=== PATIENT | male | born 1965 | race Caucasian/White ===

== ENCOUNTER 2016-10-12 08:40 | Inpatient (IN) | payer BC ==
[~2016-10-12] VITALS: Ht 190.5 cm; Wt 108.6 kg
[2016-10-12] MEDS ORDERED: SODIUM CHLORIDE 0.9% 1,000 ML IV ONE ×2 (10:14→12:01)
[2016-10-12] MEDS ORDERED: METOCLOPRAMIDE HCL 5MG/ml INJ 2ml VIAL IV ONE (10:15)
[2016-10-12] MEDS ORDERED: KETOROLAC TROMETH 30 MG/ML 1ML VIAL IV ONE (10:15)
[2016-10-12] MEDS ORDERED: cefTRIAXone 1GM/50ML D5W 50 ML IV ONE (12:15)
[2016-10-12 12:27] LABS: CONDITION Y; DEFINITIVE SEE PRINTOUT; Hemoglobin 15.8 g/dL (13.5-17.5); Mean Corpuscular Hemoglobin 40.3 pg (28.0-32.0); Mean Corpuscular Hgb Conc. 35.8 g/dL (32.0-36.0); Mean Corpuscular Volume 112.6 fL (80.0-100.0); Platelet Count (auto) 447 10^3/uL (140-450); Red Cell Distribution Width 14.4 % (11.6-16.0); SUSPECT SEE PRINTOUT; White Blood Cell 20.5 10^3/uL (4.4-10.8)
[2016-10-12 12:46] LABS: BUN/Creatinine Ratio 13.5; Calcium 9.2 mg/dL (8.5-10.1); Magnesium 1.5 mg/dL (1.6-2.6)
[2016-10-12 13:01] LABS: Metamyelocytes % 0; Myelocytes % 0; Promyelocytes % 0; Reactive Lymphocytes 0
[2016-10-12 13:22] LABS: Giant Platelets Few; Platelet Estimate Adequate
[2016-10-12 13:23] LABS: Large Platelets FEW
[2016-10-12] MEDS: MAGNESIUM SULFATE 1GM/100ML 100 ML IV SCH ×2 (14:00→15:14)
[2016-10-12 14:27] LABS: Urine Blood TRACE /uL (Negative); Urine Color Brown (Yellow); Urine Glucose Normal (Normal); Urine Hyaline Cast FEW /lpf (0 - 2); Urine Ketone Negative (Negative); Urine Mucus FEW (None Seen); Urine Nitrite Negative (Negative); Urine RBC 6 /hpf (0 - 3); Urine Squamous Epithelial Cell FEW /hpf (<5)
[2016-10-12 14:35] LABS: Urine Bilirubin POSITIVE (Negative)
[2016-10-12] MEDS ORDERED: NICOTINE 14 MG/24HR TOPICAL PATCH TD ONE (15:15)
[2016-10-12] MEDS ORDERED: IBUPROFEN 800 MG TAB PO PRN (15:15)
[2016-10-12] MEDS ORDERED: AZITHROMYCIN 500MG/D5W 250ML 250 ML IV ONE (15:15)
[2016-10-12] MEDS ORDERED: MORPHINE SULF INJ 2 MG/ML SYRINGE 1ML IV PRN (15:15)
[2016-10-12] MEDS ORDERED: ACETAMINOPHEN 325 MG TAB PO PRN (15:15)
[2016-10-12] MEDS ORDERED: DOCUSATE SOD 100 MG CAP PO PRN (15:15)
[2016-10-12] MEDS ORDERED: ONDANSETRON HCL 4 MG/2 ML VIAL IV PRN (15:15)
[2016-10-12] MEDS: MULTIPLE VITAMIN TAB PO SCH (15:35)
[2016-10-12] MEDS ORDERED: cloNIDine HCL 0.1 MG TAB PO PRN (16:30)
[2016-10-12 16:47] VITALS: BP 142/93
[2016-10-12] MEDS ORDERED: SIMV10TA84 (17:25)
[2016-10-12] MEDS: IPRATROPIUM BROM 0.5 MG/2.5ML INH SOL NEB SCH (18:12)
[2016-10-12] MEDS: ALBUTEROL SULF 2.5 MG/0.5ML(0.5%) NEB SOLN NEB SCH (18:13)
[2016-10-12 22:28] VITALS: BP 146/96
[2016-10-12] MEDS: SODIUM CHLOR 0.9% PF (SALINE LOCK) 10ML VIAL IV SCH (22:46)
[2016-10-12] MEDS: HYDROcodone-ACET 5/325MG TAB PO PRN (22:46)
[2016-10-13] MEDS: ALBUTEROL SULF 2.5 MG/0.5ML(0.5%) NEB SOLN NEB SCH ×4 (02:21→19:34)
[2016-10-13] MEDS: IPRATROPIUM BROM 0.5 MG/2.5ML INH SOL NEB SCH ×4 (02:21→19:34)
[2016-10-13 04:14] VITALS: BP 146/96
[2016-10-13 04:55] VITALS: BP 145/94
[2016-10-13 05:54] LABS: Basophils # (auto) 0 uL; Basophils % (auto) 0.2 % (0.0-2.0); CONDITION Y; DEFINITIVE SEE PRINTOUT; Eosinophils # (auto) 0.2 uL; Hematocrit 40.2 % (41.0-53.0); Hemoglobin 14.2 g/dL (13.5-17.5); Lymphocytes # (auto) 3.5 uL; Lymphocytes % (auto) 21.4 % (10.0-50.0); Mean Corpuscular Hemoglobin 39.8 pg (28.0-32.0); Mean Corpuscular Hgb Conc. 35.3 g/dL (32.0-36.0); Mean Platelet Volume 7.5 fL (7.4-10.4); Monocytes # (auto) 1.1 uL; Monocytes % (auto) 6.7 % (0.0-12.0); Neutrophils # (auto) 11.6 uL; Neutrophils % (auto) 70.7 % (37.0-80.0); Platelet Count (auto) 413 10^3/uL (140-450); Red Cell Distribution Width 14.1 % (11.6-16.0); White Blood Cell 16.4 10^3/uL (4.4-10.8)
[2016-10-13 05:59] LABS: Albumin 2.9 g/dL (3.4-5.0); BUN/Creatinine Ratio 15.7; Calcium 8.9 mg/dL (8.5-10.1); Potassium 4.1 mmol/L (3.5-5.1)
[2016-10-13 06:02] LABS: Bilirubin, Total 2.2 mg/dL (0.2-1.0)
[2016-10-13] MEDS: SODIUM CHLOR 0.9% PF (SALINE LOCK) 10ML VIAL IV SCH ×3 (06:07→22:39)
[2016-10-13 09:00] VITALS: BP 142/96
[2016-10-13] MEDS: AZITHROMYCIN 500MG/D5W 250ML 250 ML IV SCH (10:16)
[2016-10-13] MEDS: NICOTINE 14 MG/24HR TOPICAL PATCH TD SCH (10:16)
[2016-10-13] MEDS: cefTRIAXone 1GM/50ML D5W 50 ML IV SCH (10:16)
[2016-10-13] MEDS: MULTIPLE VITAMIN TAB PO SCH (10:16)
[2016-10-13] MEDS: HYDROcodone-ACET 5/325MG TAB PO PRN ×3 (11:49→22:40)
[2016-10-13] MEDS ORDERED: LISINOPRIL 10 MG TAB PO ONE (12:15)
[2016-10-13] MEDS ORDERED: THIAMINE HCL 100 MG/ML 2ML VIAL IV ONE (12:15)
[2016-10-13] MEDS: SODIUM CHLORIDE 0.9% 1,000 ML IV SCH (12:39)
[2016-10-13 13:00] VITALS: BP 157/91
[2016-10-13 17:23] VITALS: BP 146/95
[2016-10-13 22:00] VITALS: BP 148/92
[2016-10-13] MEDS: TEMAZEPAM 15 MG CAP PO PRN (22:40)
[2016-10-14] MEDS: IPRATROPIUM BROM 0.5 MG/2.5ML INH SOL NEB SCH ×5 (01:44→23:55)
[2016-10-14] MEDS: ALBUTEROL SULF 2.5 MG/0.5ML(0.5%) NEB SOLN NEB SCH ×5 (01:44→23:55)
[2016-10-14] MEDS: SODIUM CHLORIDE 0.9% 1,000 ML IV SCH ×2 (02:29→14:55)
[2016-10-14] MEDS: HYDROcodone-ACET 5/325MG TAB PO PRN ×2 (02:35→22:08)
[2016-10-14 05:00] VITALS: BP 137/92
[2016-10-14] MEDS: SODIUM CHLOR 0.9% PF (SALINE LOCK) 10ML VIAL IV SCH ×3 (05:53→22:04)
[2016-10-14 06:11] LABS: Basophils # (auto) 0.1 uL; Basophils % (auto) 0.3 % (0.0-2.0); CONDITION Y; DEFINITIVE SEE PRINTOUT; Eosinophils # (auto) 0.1 uL; Eosinophils % (auto) 0.7 % (0.0-7.0); Hematocrit 39.5 % (41.0-53.0); Hemoglobin 13.9 g/dL (13.5-17.5); Lymphocytes # (auto) 2.9 uL; Lymphocytes % (auto) 16.4 % (10.0-50.0); Mean Corpuscular Hgb Conc. 35.2 g/dL (32.0-36.0); Mean Corpuscular Volume 113.6 fL (80.0-100.0); Mean Platelet Volume 7.5 fL (7.4-10.4); Monocytes # (auto) 1.6 uL; Monocytes % (auto) 9.2 % (0.0-12.0); Neutrophils # (auto) 13.1 uL; Neutrophils % (auto) 73.4 % (37.0-80.0); Platelet Count (auto) 417 10^3/uL (140-450); Red Cell Distribution Width 14.5 % (11.6-16.0); White Blood Cell 17.8 10^3/uL (4.4-10.8)
[2016-10-14 06:36] LABS: Potassium 3.8 mmol/L (3.5-5.1)
[2016-10-14 06:42] LABS: BUN/Creatinine Ratio 12.1; Calcium 9.2 mg/dL (8.5-10.1); Magnesium 1.5 mg/dL (1.6-2.6)
[2016-10-14 09:00] VITALS: BP 142/85
[2016-10-14] MEDS: cefTRIAXone 1GM/50ML D5W 50 ML IV SCH (10:21)
[2016-10-14] MEDS: AZITHROMYCIN 500MG/D5W 250ML 250 ML IV SCH (10:22)
[2016-10-14] MEDS: MULTIPLE VITAMIN TAB PO SCH (10:23)
[2016-10-14] MEDS: LISINOPRIL 10 MG TAB PO SCH (10:23)
[2016-10-14] MEDS: NICOTINE 14 MG/24HR TOPICAL PATCH TD SCH (10:24)
[2016-10-14] MEDS ORDERED: cloNIDine HCL 0.1 MG TAB PO PRN (11:45)
[2016-10-14] MEDS ORDERED: PANTOPRAZOLE 40 MG TAB PO ONE (11:45)
[2016-10-14] MEDS ORDERED: SERTRALINE HCL 50 MG TAB PO ONE (11:45)
[2016-10-14] MEDS ORDERED: INDOMETHACIN 25 MG CAP PO ONE (11:45)
[2016-10-14] MEDS: THIAMINE HCL 100 MG/ML 2ML VIAL IV SCH (11:47)
[2016-10-14 13:00] VITALS: BP 146/83
[2016-10-14] MEDS: MAGNESIUM SULFATE 1GM/100ML 100 ML IV SCH ×2 (14:34→15:32)
[2016-10-14] MEDS: INDOMETHACIN 25 MG CAP PO SCH ×2 (14:40→22:00)
[2016-10-14 17:00] VITALS: BP 149/90
[2016-10-14 22:00] VITALS: BP 142/91
[2016-10-14] MEDS: TEMAZEPAM 15 MG CAP PO PRN (22:00)
[2016-10-14] MEDS ORDERED: TEMAZEPAM 15 MG CAP PO ONE (22:30)
[2016-10-15 05:00] VITALS: BP 136/88
[2016-10-15] MEDS: ALBUTEROL SULF 2.5 MG/0.5ML(0.5%) NEB SOLN NEB SCH ×3 (06:21→18:52)
[2016-10-15] MEDS: IPRATROPIUM BROM 0.5 MG/2.5ML INH SOL NEB SCH ×3 (06:21→18:52)
[2016-10-15 06:36] LABS: Basophils # (auto) 0 uL; Basophils % (auto) 0.1 % (0.0-2.0); CONDITION Y; DEFINITIVE SEE PRINTOUT; Eosinophils # (auto) 0.2 uL; Eosinophils % (auto) 1.5 % (0.0-7.0); Hematocrit 38.1 % (41.0-53.0); Hemoglobin 13.5 g/dL (13.5-17.5); Lymphocytes # (auto) 2.3 uL; Lymphocytes % (auto) 15.4 % (10.0-50.0); Mean Corpuscular Hgb Conc. 35.4 g/dL (32.0-36.0); Mean Corpuscular Volume 113.2 fL (80.0-100.0); Mean Platelet Volume 7.8 fL (7.4-10.4); Monocytes # (auto) 1.4 uL; Monocytes % (auto) 9.8 % (0.0-12.0); Neutrophils # (auto) 10.8 uL; Neutrophils % (auto) 73.2 % (37.0-80.0); Platelet Count (auto) 447 10^3/uL (140-450); Red Cell Distribution Width 13.9 % (11.6-16.0); White Blood Cell 14.7 10^3/uL (4.4-10.8)
[2016-10-15] MEDS: INDOMETHACIN 25 MG CAP PO SCH ×3 (06:43→22:13)
[2016-10-15] MEDS: SODIUM CHLOR 0.9% PF (SALINE LOCK) 10ML VIAL IV SCH ×3 (06:43→22:13)
[2016-10-15] MEDS: SODIUM CHLORIDE 0.9% 1,000 ML IV SCH ×2 (06:43→17:35)
[2016-10-15 09:00] VITALS: BP 146/98
[2016-10-15] MEDS: cefTRIAXone 1GM/50ML D5W 50 ML IV SCH (09:45)
[2016-10-15] MEDS: SERTRALINE HCL 50 MG TAB PO SCH (09:46)
[2016-10-15] MEDS: AZITHROMYCIN 250 MG TAB PO SCH (09:46)
[2016-10-15] MEDS: PANTOPRAZOLE 40 MG TAB PO SCH (09:46)
[2016-10-15] MEDS: MULTIPLE VITAMIN TAB PO SCH (09:47)
[2016-10-15] MEDS: THIAMINE HCL 100 MG/ML 2ML VIAL IV SCH (09:48)
[2016-10-15] MEDS: LISINOPRIL 10 MG TAB PO SCH (09:48)
[2016-10-15] MEDS: NICOTINE 14 MG/24HR TOPICAL PATCH TD SCH (09:49)
[2016-10-15] MEDS ORDERED: methylPREDNISolone SOD SUCC 40 MG/ML VL IV ONE (11:15)
[2016-10-15 12:44] VITALS: BP 131/79
[2016-10-15 17:00] VITALS: BP 148/96
[2016-10-15 22:00] VITALS: BP 147/102
[2016-10-15] MEDS: methylPREDNISolone SOD SUCC 40 MG/ML VL IV SCH (22:13)
[2016-10-15] MEDS: TEMAZEPAM 15 MG CAP PO PRN (23:24)
[2016-10-15] MEDS: HYDROcodone-ACET 5/325MG TAB PO PRN (23:24)
[2016-10-16 05:00] VITALS: BP 150/87
[2016-10-16] MEDS: SODIUM CHLOR 0.9% PF (SALINE LOCK) 10ML VIAL IV SCH ×2 (06:13→14:00)
[2016-10-16] MEDS: INDOMETHACIN 25 MG CAP PO SCH ×2 (06:13→14:00)
[2016-10-16] MEDS: IPRATROPIUM BROM 0.5 MG/2.5ML INH SOL NEB SCH ×3 (06:30→12:49)
[2016-10-16] MEDS: ALBUTEROL SULF 2.5 MG/0.5ML(0.5%) NEB SOLN NEB SCH ×3 (06:30→12:49)
[2016-10-16] MEDS: SODIUM CHLORIDE 0.9% 1,000 ML IV SCH (06:40)
[2016-10-16 08:00] VITALS: BP 151/97
[2016-10-16 08:29] VITALS: BP 151/97
[2016-10-16] MEDS: THIAMINE HCL 100 MG/ML 2ML VIAL IV SCH (09:50)
[2016-10-16] MEDS: NICOTINE 14 MG/24HR TOPICAL PATCH TD SCH (09:51)
[2016-10-16] MEDS: methylPREDNISolone SOD SUCC 40 MG/ML VL IV SCH (09:51)
[2016-10-16] MEDS: AZITHROMYCIN 250 MG TAB PO SCH (09:53)
[2016-10-16] MEDS: MULTIPLE VITAMIN TAB PO SCH (09:53)
[2016-10-16] MEDS: SERTRALINE HCL 50 MG TAB PO SCH (09:53)
[2016-10-16] MEDS: LISINOPRIL 10 MG TAB PO SCH (09:54)
[2016-10-16] MEDS: PANTOPRAZOLE 40 MG TAB PO SCH (09:55)
[2016-10-16] MEDS: cefTRIAXone 1GM/50ML D5W 50 ML IV SCH (09:56)
[2016-10-16 12:07] VITALS: BP 151/97
[2016-10-16 13:00] VITALS: BP 147/91
[2016-10-16 15:17] LABS: Body Fluid Polymorphonuclear 87 %
== END 2016-10-16 15:00 | disposition home or self-care (01) | DRG 871 ==
LOC: ER 08:40 → OVERFLOW 08:41 → EAST 16:34 → TELE-E-ADS 16:39 → EAST 17:19
PROVIDERS: ADMIT Internal Medicine; ATTEND Internal Medicine
DX: A41.9 Sepsis, unspecified organism (principal); J18.1 Lobar pneumonia, unspecified organism; E83.42 Hypomagnesemia; J45.901 Unspecified asthma with (acute) exacerbation; K21.9 Gastro-esophageal reflux disease without esophagitis; J98.11 Atelectasis; N39.0 Urinary tract infection, site not specified; I10 Essential (primary) hypertension; F17.210 Nicotine dependence, cigarettes, uncomplicated; M25.461 Effusion, right knee; F10.10 Alcohol abuse, uncomplicated; F32.9 Major depressive disorder, single episode, unspecified; I12.9 Hypertensive chronic kidney disease with stage 1 through stage 4 chronic kidney disease, or unspecified chronic kidney disease; N18.2 Chronic kidney disease, stage 2 (mild); M10.9 Gout, unspecified; M19.90 Unspecified osteoarthritis, unspecified site; Z79.899 Other long term (current) drug therapy; Z83.3 Family history of diabetes mellitus; Z90.81 Acquired absence of spleen
CPT/HCPCS: 36415; 71020; 73560; 80048; 80053; 81001; 83605; 83735; 84550; 85007; 85025; 85027; 85652; 86200; 86812; 87040; 87070; 87086; 87205; 89051; 89060; 94640; 94761; 96365; 96366; 96367; 96368; 96375; J0696; J1885